=== PATIENT | female | born 1985 | race Two or more races ===

== ENCOUNTER 2020-06-22 04:03 | Emergency (ER) | payer OTHER ==
[~2020-06-22] VITALS: Ht 167.6 cm; Wt 83.9 kg
[2020-06-22] MEDS ORDERED: LOSARTAN POTASS50 MG (04:33)
== END 2020-06-22 12:27 | disposition home or self-care (01) ==
LOC: ER 04:03 → CPU-OBS 04:12 → ER 04:12
DX: I16.0 Hypertensive urgency (principal); I10 Essential (primary) hypertension; Z20.828 Contact with and (suspected) exposure to other viral communicable diseases
CPT/HCPCS: G0378; 93005; G0379; 70450

== ENCOUNTER 2020-09-02 00:13 | Emergency (ER) | payer OTHER ==
[~2020-09-02] VITALS: Ht 167.6 cm; Wt 83.5 kg
[~2020-09-02 00:13] MED LIST: LOSARTAN POTASS50 MG
[2020-09-02] MEDS ORDERED: HYDROCHLOROTH12.5 MG (00:44)
== END 2020-09-02 02:55 | disposition home or self-care (01) ==
LOC: ER 00:13
DX: I15.8 Other secondary hypertension (principal); T50.2X5A Adverse effect of carbonic-anhydrase inhibitors, benzothiadiazides and other diuretics, initial encounter; Z03.818 Encounter for observation for suspected exposure to other biological agents ruled out; Y92.89 Other specified places as the place of occurrence of the external cause

== ENCOUNTER 2021-03-13 11:09 | Outpatient (CLI) | payer OTHER ==
[~2021-03-13 11:09] MED LIST changes: +HYDROCHLOROTH12.5 MG
== END 2021-03-13 11:19 | disposition home or self-care (01) ==
LOC: SONOGRAMA 11:09
PROVIDERS: ATTEND Surgery
DX: D24.2 Benign neoplasm of left breast (principal); N60.11 Diffuse cystic mastopathy of right breast; N60.12 Diffuse cystic mastopathy of left breast